=== PATIENT | female | born 1970 | race African-American/Black ===

== ENCOUNTER 2017-03-08 12:49 | Emergency (ER) | payer SELFPAY | END 2017-03-08 13:55 | disposition left against medical advice (07) | LOC: E/R 12:49 | DX: Z53.21 Procedure and treatment not carried out due to patient leaving prior to being seen by health care provider (principal) ==

== ENCOUNTER 2017-12-30 06:58 | Day surgery (SDC) | END 2017-12-30 10:45 | disposition home or self-care (01) ==